=== PATIENT | female | born 1975 | race Caucasian/White ===

== ENCOUNTER 2019-05-13 14:20 | Emergency (ER) | payer SELFPAY ==
[~2019-05-13] VITALS: Ht 162.6 cm; Wt 59.1 kg
[2019-05-13 14:25] VITALS: TEMP 98.4
[2019-05-13 14:54] LABS: BASO % 0.5 % (0.0-2.0); EOS # 0.2 (0.0-0.7); EOS % 2.8 % (0-4.0); GRAN # 4.4 (1.4-6.5); GRAN % 59.5 % (42.2-75.2); HEMATOCRIT 39.5 % (37.0-47.0); HEMOGLOBIN 13.1 g/dl (12.5-16.0); LYMPH # 2.5 (1.2-3.4); LYMPH % 32.9 % (20.0-51.0); MEAN CELL VOLUME 97 fl (80.0-100.0); MEAN CORPUSCULAR HEMOGLOBIN 32 pg (27.0-31.0); MEAN CORPUSCULAR HGB CONC 33 g/dl (33.0-37.0); MEAN PLATELET VOLUME 9.2 fl (7.4-10.4); MONO # 0.3 (0.1-0.6); PLATELET COUNT 185 K/mm3 (130-400); RED BLOOD COUNT 4.09 M/mm3 (4.10-5.30); REDCELL DISTRIBUTION WIDTH-CV 12.4 % (11.5-14.5)
[2019-05-13 15:06] LABS: COLLECTION METHOD CLEAN CATCH
[2019-05-13 15:09] LABS: ALBUMIN 4.2 gm/dL (3.5-5.0); BILIRUBIN,TOTAL 0.3 mg/dL (0.0-1.0); C-REACTIVE PROTEIN 0.6 mg/dL (0.0-0.9); CALCIUM 9.4 mg/dL (8.4-10.2); CREATININE, serum 0.79 (0.52-1.25); POTASSIUM 4.2 mmol/L (3.4-5.0); TOTAL PROTEIN 7.3 gm/dL (6.4-8.2)
[2019-05-13 15:15] LABS: AMORPHOUS CRYSTAL Present /uL; MUCOUS Present /lpf; PH 8 (5-8); SQUAMOUS EPITHELIAL 0-2 /hpf; URINE APPEARANCE Cloudy; URINE BACTERIA None Seen /hpf; URINE BILIRUBIN Negative (NEGATIVE); URINE BLOOD Negative (NEGATIVE); URINE COLOR Yellow; URINE GLUCOSE Negative (NEGATIVE); URINE KETONE Negative (NEGATIVE); URINE LEUKOCYTE ESTERASE Negative (NEGATIVE); URINE NITRATE Negative (NEGATIVE); URINE PROTEIN(semi-quant) Negative (NEGATIVE); URINE RBC None Seen /hpf; URINE UROBILINOGEN Negative (NEGATIVE)
[2019-05-13] MEDS ORDERED: PHENERGAN 25 TA25 MG PO (15:57)
[2019-05-13] MEDS ORDERED: PERCOCET 325 MG1 TA2 PO (15:57)
[2019-05-13 16:47] VITALS: BP 134/88; PULSE 79
== END 2019-05-13 16:47 | disposition home or self-care (01) ==
LOC: COL.ER 14:20
PROVIDERS: Emergency Medicine
DX: R19.7 Diarrhea, unspecified (principal); M54.9 Dorsalgia, unspecified; G89.29 Other chronic pain; F17.210 Nicotine dependence, cigarettes, uncomplicated; Z90.49 Acquired absence of other specified parts of digestive tract; Z90.710 Acquired absence of both cervix and uterus
CPT/HCPCS: J1170; J2405; J7030; Q9967

== ENCOUNTER 2019-05-16 09:18 | Emergency (ER) | payer SELFPAY ==
[~2019-05-16] VITALS: Ht 160 cm; Wt 59.1 kg
[~2019-05-16 09:18] MED LIST: PERCOCET 325 MG1 TA2 PO; PHENERGAN 25 TA25 MG PO
[2019-05-16 09:26] VITALS: TEMP 98.5
[2019-05-16] MEDS ORDERED: NORVASC 5MG5 MG/TAB PO (10:10)
[2019-05-16 10:29] VITALS: BP 148/98; PULSE 97
== END 2019-05-16 10:31 | disposition home or self-care (01) ==
LOC: COL.ER 09:18
DX: R04.0 Epistaxis (principal); I10 Essential (primary) hypertension